=== PATIENT | male | born 1965 | race Caucasian/White ===

== ENCOUNTER 2019-02-20 20:24 | Emergency (ER) | payer BC, OTHER ==
--- NOTE | 2019-02-20 21:01 | ED ---
General Adult HPI - General Chief complaint: Skin/Abscess/Foreign Body Stated complaint: Rash on Back Time Seen by Provider: 02/20/19 20:31 Source: patient Mode of arrival: ambulatory Limitations: no limitations - History of Present Illness Initial comments: Patient is 54-year-old male with history of rheumatoid arthritis is presenting to emergency Department with a chief complaint of a left-sided rash in the back. Patient reports he woke up this morning and noticed a rash on the left upper thoracic region. He states he attempted to itch it and it was painful. Patient does report a burning sensation at the lesion. Patient denies any night sweats or chills. Patient denies any discharge from the region. Patient denies similar lesions on other areas of the body. Patient reports the child he had chickenpox. Patient denies taking the shingles vaccine because he is immunocompromised from taking biologic and methotrexate for the with her ar thritis. - Related Data Home Medications Medication Instructions Recorded Confirmed Adalimumab [Humira Crohn's] 40 mg SQ Q14D 01/04/17 01/04/17 Buta/APAP/Caf/Cod 57-048-61-30 1 cap PO Q4H PRN 01/04/17 01/04/17 [Fioricet w/Cod 17-031-75-30MG] Erythromycin Ophth Oint [Romycin 1 applic LEFT EYE Q2HR 01/04/17 01/04/17 Ophth Oint] HYDROcodone/APAP 10-325MG [[place] 1 tab PO Q4HR PRN 01/04/17 01/04/17 10-325] Methotrexate Sodium [Methotrexate] 17.5 tab PO SA 01/04/17 01/04/17 Nortriptyline HCl [Pamelor] 25 mg PO HS 01/04/17 01/04/17 SUMAtriptan SUCCINATE [Sumatriptan 100 mg PO DAILY PRN 01/04/17 01/04/17 Succinate] Simvastatin [Zocor] 40 mg PO HS 01/04/17 01/04/17 Previous Rx's Medication Instructions Recorded HYDROcodone/APAP 5-325MG [[place] 1 - 2 tab PO Q6HR PRN #20 tab 01/04/17 5-325] Acyclovir [Zovirax] 800 mg PO QID #27 tab 02/20/19 Allergies Allergy/AdvReac Type Severity Reaction Status Date / Time No Known Allergies Allergy Verified 02/20/19 20:28 Review of Systems ROS Statement: Those systems with pertinent positive or pertinent negative responses have been documented in the HPI. ROS Other: All systems not noted in ROS Statement are negative. Past Medical History Past Medical History: Hyperlipidemia, Rheumatoid Arthritis (RA) Additional Past Medical History / Comment(s): diverticulitis History of Any Multi-Drug Resistant Organisms: None Reported Past Surgical History: Bowel Resection Past Psychological History: No Psychological Hx Reported Smoking Status: Never smoker Past Alcohol Use History: None Reported Past Drug Use History: None Reported General Exam Limitations: no limitations General appearance: alert, in no apparent distress Head exam: Present: atraumatic, normocephalic, normal inspection Eye exam: Present: normal appearance Pupils: Present: normal accommodation ENT exam: Present: normal exam, normal oropharynx, mucous membranes moist, TM's normal bilaterally, normal external ear exam Neck exam: Present: normal inspection, full ROM Respiratory exam: Present: normal lung sounds bilaterally Cardiovascular Exam: Present: regular rate, normal rhythm, normal heart sounds Extremities exam: Present: normal inspection, full ROM Back exam: Present: normal inspection, full ROM Neurological exam: Present: alert, oriented X3 Psychiatric exam: Present: normal affect, normal mood Skin exam: Present: warm, dry, intact, normal color Course Vital Signs 02/20/19 02/20/19 20:25 21:41 Temperature 98.7 F 97.9 F Pulse Rate 83 78 Respiratory 18 17 Rate Blood Pressure 147/81 138/75 O2 Sat by Pulse 98 98 Oximetry Medical Decision Making - Medical Decision Making Patient is a 54-year-old male presenting to emergency by with a chief complaint of a rash. On physical exam there is a vesicular papular rash on the left thoracic region measuring approximately 2 cm x 1 cm. Patient is a burning sensation it is painful with palpation. This appears to be shingles. Patient has had chickenpox as a child but never received additional vaccine. Patient is currently taking biologic scan methotrexate for rheumatoid arthritis. Considering this is not disseminated shingles with no signs of the lesion near the eyes or ears, the patient will be treated outpatient with oral acyclovir for 7 days. 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 Strict return parameters were thoroughly discussed with patient was under standing and agreeable. Patient advised to avoid close contact as he is contagious at this moment. Strict return parameters were thoroughly discussed with patient was understanding and agreeable. Case discussed with physician. Disposition Clinical Impression: Shingles rash Disposition: HOME SELF-CARE Condition: Stable Instructions (If sedation given, give patient instructions): Shingles (ED), Shingles Vaccine (ED) Prescriptions: Acyclovir [Zovirax] 800 mg PO QID #27 tab Is patient prescribed a controlled substance at d/c from ED?: No Referrals: Nonstaff,Physician [Primary Care Provider] - 1-2 days Time of Disposition: 21:15
[2019-02-20 21:42] VITALS: BP 138/75; PULSE 78; RESP 17; TEMP 97.9
== END 2019-02-20 21:41 | disposition home or self-care (01) ==
LOC: EC 20:24
DX: B02.9 Zoster without complications (principal); M06.9 Rheumatoid arthritis, unspecified; E78.5 Hyperlipidemia, unspecified; Z79.899 Other long term (current) drug therapy
CPT/HCPCS: 99282